=== PATIENT | female | born 1965 | race Two or more races ===

== ENCOUNTER 2021-03-25 10:24 | Outpatient (REF) | payer OTHER, SELFPAY ==
--- NOTE | ~2021-03-25 | MM_ITS ---
EXAMINATION: MM SCREENING DIGITAL BREAST TOMOSYNTHESIS, BILATERAL CLINICAL INFORMATION: Screening. Asymptomatic. The lifetime risk of breast cancer based on the Tyrer-Cuzick Model is 7%. COMPARISON: Mammography: 02/07/2017, 06/03/2016, 09/11/2013 TECHNIQUE: Digital breast tomosynthesis is performed in both the craniocaudal and mediolateral oblique views along with computer-aided detection (CAD). Synthesized 2D images are generated from the tomosynthesis. FINDINGS: There are scattered areas of fibroglandular density (ACR BI-RADS breast composition Category b). There are no significant masses, abnormal calcifications, or other abnormalities. There are incidental small intramammary nodes again seen mid upper outer right breast. There is no developing density. The axilla and skin contours are unremarkable. MM/MM tomosynthesis screening BI IMPRESSION: No mammographic evidence of malignancy. ASSESSMENT: BI-RADS 2: Benign RECOMMENDATION: Routine annual mammography screening. This patient's information was entered into a reminder system with a target due date for their next mammogram.
[2021-03-25 11:56] LABS: Alanine Aminotransferase 23 U/L (0-31); Alkaline Phosphatase 120 U/L (39-117); Anion Gap 11 (12-20); Aspartate Amino Transferase 16 U/L (5-31); Bilirubin Total 0.6 mg/dL (0.0-1.0); Blood Urea Nitrogen 11 mg/dL (9-16); Calcium 9.7 mg/dL (8.4-10.2); Carbon Dioxide 25 mmol/L (22-29); Chloride 108 mmol/L (96-108); Cholesterol 138 mg/dL; Estimated Glomerular Filt Rate > 60; Glucose Fasting 97 mg/dL (60-99); HDL Cholesterol 33 mg/dL; LDL Cholesterol Calculated 76 mg/dl; Potassium 4.2 mmol/L (3.3-5.1); Sodium 140 mmol/L (135-145); Total Protein 6.7 g/dL (6.5-8.0); Triglycerides 147 mg/dL
[2021-03-25 12:17] LABS: TSH reflex Free T4 2.89 uIU/mL (0.32-4.0)
== END 2021-03-25 10:25 | disposition home or self-care (01) ==
LOC: HO.MAMMO 10:24
PROVIDERS: PCP Nurse Practitioner Family; Visit Provider Nurse Practitioner Family
DX: Z12.31 Encounter for screening mammogram for malignant neoplasm of breast (principal); E03.9 Hypothyroidism, unspecified
CPT/HCPCS: 36415; 77063; 77067; 80053; 80061; 84443

== ENCOUNTER → 2021-05-13 08:46 | Outpatient (BNVA) | payer OTHER, SELFPAY | PROVIDERS: PCP Nurse Practitioner Family | DX: N32.81 Overactive bladder (principal); N20.0 Calculus of kidney | CPT/HCPCS: 51798; 99212 ==

== ENCOUNTER 2021-05-27 10:00 | Outpatient (RCR) | payer OTHER, SELFPAY ==
--- NOTE | 2021-06-07 10:21 | MHC.PT.DC ---
[facility] [place] Office [place] [facility] [place] [facility] [address] 140 [facility] [phone] F: [phone] F: [phone] F: [phone] F: [phone] Physical Therapy Discharge Report Diagnosis: Plantar Fasciitis Date of Surgery: None Date of Evaluation: 04/30/21 Date of Discharge: 06/07/21 Treatments to Date: 6 Cancellations to Date: 0 No Shows to Date: 4 Discharge Status: Achieved Goals Independent with HEP Discharge Summary: The patient has made significant improvements in her pain and tolerance for ADLs and work related tasks. She is able to make it through a work day without significant increase in pain. She is independent with her home exercise program. She is discharged from this physical therapy plan of care. Electronically signed by: Otilia Chappell PT, DPT Please sign and return to therapist. Thank you for your referral.
== END 2021-06-07 10:22 | disposition home or self-care (01) ==
LOC: HO.PT 10:00
PROVIDERS: PCP Nurse Practitioner Family; Visit Provider Physician Assistant Medical
DX: M72.2 Plantar fascial fibromatosis (principal)
CPT/HCPCS: 97110; 97112; 97150; 97161; 97530

== ENCOUNTER 2021-07-01 12:44 | Outpatient (REF) | payer OTHER, SELFPAY ==
--- NOTE | ~2021-07-01 | US_ITS ---
EXAMINATION: US RETROPERITONEAL LIMITED (RENAL ONLY) CLINICAL INFORMATION: Calculus of kidney. COMPARISON: CT abdomen and pelvis without contrast dated 01/25/2017. Renal ultrasound with bladder dated 07/25/2016. Bilateral renal ultrasound dated 12/22/2006. TECHNIQUE: Real-time imaging of the kidneys. FINDINGS: RIGHT KIDNEY: 10.8 x 4.7 x 5.2 cm (SAG x AP x TRV). The kidney is normal in size, contour, and echogenicity. Renal cortical thickness is normal. No calculi or focal parenchymal lesions. No hydronephrosis. LEFT KIDNEY: 10.8 x 4.0 x 4.8 cm (SAG x AP x TRV). The kidney is normal in size, contour, and echogenicity. Renal cortical thickness is normal. There is question of a small 2 mm stone in the mid left kidney versus vascular reflector. This is decreased in size from prior CT and ultrasound exam. No focal parenchymal lesions or hydronephrosis. US/US renal BI IMPRESSION: Question small left renal stone.
== END 2021-07-01 12:45 | disposition home or self-care (01) ==
LOC: HO.HMGCX 12:44
PROVIDERS: PCP Nurse Practitioner Family
DX: N20.0 Calculus of kidney (principal)
CPT/HCPCS: 76775

== ENCOUNTER 2021-12-09 11:51 | Outpatient (REF) | payer OTHER, SELFPAY ==
--- NOTE | ~2021-12-09 | XR_ITS ---
EXAMINATION: XR KNEE, RIGHT CLINICAL INFORMATION: Right knee pain COMPARISON: None TECHNIQUE: AP and lateral views of the right knee. FINDINGS: Mild medial compartment osteoarthritis. Normal alignment with no fracture. No joint effusion. XR/XR knee RT 2V IMPRESSION: Mild medial compartment osteoarthritis
--- NOTE | ~2021-12-09 | XR_ITS ---
EXAMINATION: XR FOOT, BILATERAL CLINICAL INFORMATION: Plantar fascial fibromatosis. Pain. COMPARISON: Left foot 08/01/2018 TECHNIQUE: 3 views of each foot FINDINGS: Left foot: Normal alignment. No fracture. No heel spur. Tiny posterior calcaneal enthesophyte. No periarticular osteopenia or erosions. No suspicious soft tissue calcifications. No significant change. Right foot: Normal alignment. No fracture. No heel spur. No erosions or suspicious soft tissue calcifications. XR/XR foot LT min 3V IMPRESSION: Left foot: Tiny posterior calcaneal enthesophyte. Otherwise unremarkable. No change. Right foot: Normal.
--- NOTE | ~2021-12-09 | XR_ITS ---
EXAMINATION: XR FOOT, BILATERAL CLINICAL INFORMATION: Plantar fascial fibromatosis. Pain. COMPARISON: Left foot 08/01/2018 TECHNIQUE: 3 views of each foot FINDINGS: Left foot: Normal alignment. No fracture. No heel spur. Tiny posterior calcaneal enthesophyte. No periarticular osteopenia or erosions. No suspicious soft tissue calcifications. No significant change. Right foot: Normal alignment. No fracture. No heel spur. No erosions or suspicious soft tissue calcifications. XR/XR foot RT min 3V IMPRESSION: Left foot: Tiny posterior calcaneal enthesophyte. Otherwise unremarkable. No change. Right foot: Normal.
== END 2021-12-09 11:52 | disposition home or self-care (01) ==
LOC: HO.HMGCX 11:51
PROVIDERS: Visit Provider Nurse Practitioner Family
DX: M25.561 Pain in right knee (principal); M72.2 Plantar fascial fibromatosis
CPT/HCPCS: 73560; 73630

== ENCOUNTER 2021-12-16 08:55 | Outpatient (REF) | payer OTHER, SELFPAY ==
[2021-12-16 11:22] LABS: MANUAL DIFF FLAG NO
[2021-12-16 11:37] LABS: Basophils Percent Auto 0.2 % (0-2); Eosinophils Absolute Auto 0.1 X10*3/uL (0.0-0.4); Hematocrit 43.3 % (37.0-47.0); Hemoglobin 14.4 g/dl (12.0-16.0); Imm Gran Abs Auto 0.03 X10*3/uL (0.00-0.03); Imm Gran Pct Auto 0.5 % (0.0-0.4); Lymphocytes Absolute Auto 1.3 X10*3/uL (1.2-4.9); Lymphocytes Percent Auto 20.7 % (20-40); Mean Corpuscular HGB Conc 33.3 g/dl (31.0-35.0); Mean Corpuscular Volume 90.2 fL (80.0-98.0); Mean Platelet Volume 11.1 fL (9.4-12.3); Monocytes Absolute Auto 0.4 X10*3/uL (0.1-1.2); Monocytes Percent Auto 7.1 % (2-11); Neutrophils Absolute Auto 4.4 x10*3/uL (2.0-8.3); Neutrophils Percent Auto 70.5 % (45-73); Platelet Count 195 X10*3/uL (160-400); Red Cell Distribution Width 13.7 % (11.0-16.0); White Blood Count 6.2 X10*3/uL (4.8-10.8)
[2021-12-16 11:50] LABS: Alanine Aminotransferase 20 U/L (0-31); Albumin Level 4.2 g/dL (3.5-5.0); Alkaline Phosphatase 118 U/L (39-117); Anion Gap 11 (12-20); Aspartate Amino Transferase 16 U/L (5-31); Bilirubin Total 0.7 mg/dL (0.0-1.0); Blood Urea Nitrogen 16 mg/dL (9-16); Calcium 9.8 mg/dL (8.4-10.2); Carbon Dioxide 26 mmol/L (22-29); Chloride 106 mmol/L (96-108); Cholesterol 173 mg/dL; Estimated Glomerular Filt Rate > 60; Glucose Fasting 100 mg/dL (60-99); HDL Cholesterol 41 mg/dL; Iron 76 mcg/dL (30-160); LDL Cholesterol Calculated 111 mg/dl; Percent Iron Saturation 23 % (15-50); Potassium 4.2 mmol/L (3.3-5.1); Sodium 139 mmol/L (135-145); Total Iron Binding Capacity 325 mcg/dL (228-428); Total Protein 7.1 g/dL (6.5-8.0); Triglycerides 108 mg/dL; Unsaturated Iron Binding 249 ug/dL
[2021-12-16 12:04] LABS: Ferritin 48 ng/mL (10-250); TSH reflex Free T4 19.33 uIU/mL (0.32-4.0)
[2021-12-16 12:24] LABS: Folate 7.3 ng/mL (> or = 4.0); Vitamin B12 756 pg/mL (200-900)
[2021-12-16 12:35] LABS: Appearance Urine CLEAR; Color Urine YELLOW; Glucose Urine UA NEG (NEG); Leukocyte Esterase Urine NEG (NEG); Nitrite Urine NEG (NEG); Specific Gravity - Urine 1.015 (1.005-1.025); Urine Blood NEG (NEG); Urine Ketones NEG (NEG); Urine Protein NEG (NEG-TRACE)
[2021-12-16 13:26] LABS: Free T4 (Free Thyroxine) 0.94 ng/dL (0.71-1.85)
== END 2021-12-16 08:56 | disposition home or self-care (01) ==
LOC: HO.HMGCLDS 08:55
PROVIDERS: PCP Nurse Practitioner Family; Visit Provider Nurse Practitioner Family
DX: R53.83 Other fatigue (principal)
CPT/HCPCS: 36415; 80053; 80061; 81003; 82607; 82728; 82746; 83540; 84439; 84443; 85025

== ENCOUNTER 2022-05-05 11:00 | Outpatient (REF) | payer OTHER, SELFPAY ==
[2022-05-05 13:59] LABS: MANUAL DIFF FLAG NO
[2022-05-05 14:02] LABS: Appearance Urine Clear; Color Urine Yellow; Glucose Urine UA Negative (Negative); Leukocyte Esterase Urine Trace (Negative); Nitrite Urine Negative (Negative); PH 6.5 (5.0-9.0); UMIC TRIGGER UACC YES; Urine Blood Negative (Negative); Urine Ketones Negative (Negative); Urine Protein Negative (Neg-Trace)
[2022-05-05 14:04] LABS: Bacteria Urine Trace (None Seen); Hyaline Casts Urine 0-2 /LPF (0-2); RBC Urine 0-2 /HPF (0-2); WBC Urine 0-5 /HPF (0-5)
[2022-05-05 14:06] LABS: Basophils Percent Auto 0.4 % (0-2); Eosinophils Absolute Auto 0.1 X10*3/uL (0.0-0.4); Eosinophils Percent Auto 1.2 % (0-4); Hematocrit 46.5 % (37.0-47.0); Hemoglobin 15.4 g/dl (12.0-16.0); Imm Gran Abs Auto 0.02 X10*3/uL (0.00-0.03); Imm Gran Pct Auto 0.4 % (0.0-0.4); Lymphocytes Absolute Auto 1.4 X10*3/uL (1.2-4.9); Mean Corpuscular HGB Conc 33.1 g/dl (31.0-35.0); Mean Corpuscular Hemoglobin 30.4 pg (27.0-33.0); Mean Corpuscular Volume 91.7 fL (80.0-98.0); Mean Platelet Volume 11.5 fL (9.4-12.3); Monocytes Absolute Auto 0.3 X10*3/uL (0.1-1.2); Monocytes Percent Auto 6.7 % (2-11); Neutrophils Absolute Auto 3.1 x10*3/uL (2.0-8.3); Neutrophils Percent Auto 62.3 % (45-73); Platelet Count 215 X10*3/uL (160-400); Red Blood Count 5.07 X10*6/uL (4.20-5.50); Red Cell Distribution Width 13.3 % (11.0-16.0); White Blood Count 4.9 X10*3/uL (4.8-10.8)
[2022-05-05 14:28] LABS: Alanine Aminotransferase 20 U/L (0-31); Albumin Level 4.3 g/dL (3.5-5.0); Alkaline Phosphatase 113 U/L (39-117); Anion Gap 13 (12-20); Aspartate Amino Transferase 15 U/L (5-31); Bilirubin Total 0.6 mg/dL (0.0-1.0); Blood Urea Nitrogen 15 mg/dL (9-16); Calcium 9.8 mg/dL (8.4-10.2); Carbon Dioxide 28 mmol/L (22-29); Chloride 106 mmol/L (96-108); Cholesterol 144 mg/dL; Estimated Glomerular Filt Rate > 60; Glucose Fasting 107 mg/dL (60-99); HDL Cholesterol 42 mg/dL; LDL Cholesterol Calculated 83 mg/dl; Potassium 4.8 mmol/L (3.3-5.1); Sodium 142 mmol/L (135-145); Total Protein 7.2 g/dL (6.5-8.0); Triglycerides 98 mg/dL
[2022-05-05 14:49] LABS: TSH reflex Free T4 4.08 uIU/mL (0.32-4.0)
[2022-05-05 15:02] LABS: Folate 11.1 ng/mL (> or = 4.0); Vitamin B12 830 pg/mL (200-900)
[2022-05-05 15:36] LABS: Free T4 (Free Thyroxine) 1.23 ng/dL (0.71-1.85)
[2022-05-09 19:05] LABS: Lyme Abs Screen <0.90 index
== END 2022-05-05 11:01 | disposition home or self-care (01) ==
LOC: HO.HMGCLDS 11:00
PROVIDERS: PCP Nurse Practitioner Family; Visit Provider Nurse Practitioner Family
DX: F41.9 Anxiety disorder, unspecified (principal); M25.50 Pain in unspecified joint; E53.8 Deficiency of other specified B group vitamins; R79.89 Other specified abnormal findings of blood chemistry
CPT/HCPCS: 36415; 80053; 80061; 81001; 81003; 82607; 82746; 84439; 84443; 85025; 86617; 86618

== ENCOUNTER 2022-06-23 16:38 | Outpatient (REF) | payer OTHER, SELFPAY ==
--- NOTE | ~2022-06-23 | XR_ITS ---
EXAMINATION: XR CHEST CLINICAL INFORMATION: Cough COMPARISON: None TECHNIQUE: 2 views of the chest were obtained. FINDINGS: No significant abnormality is noted involving the heart, lungs, mediastinum, bony thorax or soft tissues. XR/XR chest 2V IMPRESSION: No acute pulmonary disease.
[2022-06-23 16:51] LABS: MANUAL DIFF FLAG NO
[2022-06-23 17:27] LABS: Basophils Percent Auto 0.2 % (0-2); Eosinophils Absolute Auto 0.1 X10*3/uL (0.0-0.4); Eosinophils Percent Auto 0.9 % (0-4); Hematocrit 45.3 % (37.0-47.0); Hemoglobin 15.3 g/dl (12.0-16.0); Imm Gran Abs Auto 0.03 X10*3/uL (0.00-0.03); Imm Gran Pct Auto 0.3 % (0.0-0.4); Lymphocytes Percent Auto 22.4 % (20-40); Mean Corpuscular HGB Conc 33.8 g/dl (31.0-35.0); Mean Corpuscular Hemoglobin 30.8 pg (27.0-33.0); Mean Corpuscular Volume 91.1 fL (80.0-98.0); Monocytes Absolute Auto 0.6 X10*3/uL (0.1-1.2); Monocytes Percent Auto 7.1 % (2-11); Neutrophils Percent Auto 69.1 % (45-73); Platelet Count 214 X10*3/uL (160-400); Red Blood Count 4.97 X10*6/uL (4.20-5.50); Red Cell Distribution Width 12.9 % (11.0-16.0); White Blood Count 8.7 X10*3/uL (4.8-10.8)
[2022-06-23 17:41] LABS: Anion Gap 15 (12-20); Carbon Dioxide 26 mmol/L (22-29); Chloride 104 mmol/L (96-108); Potassium 4.5 mmol/L (3.3-5.1); Sodium 140 mmol/L (135-145)
[2022-06-23 18:06] LABS: TSH reflex Free T4 2.92 uIU/mL (0.32-4.0)
== END 2022-06-23 16:39 | disposition home or self-care (01) ==
LOC: HO.LAB 16:38
DX: R05.9 Cough, unspecified (principal); R53.83 Other fatigue
CPT/HCPCS: 36415; 71046; 80051; 84443; 85025

== ENCOUNTER 2022-06-30 12:47 | Outpatient (REF) | payer OTHER, SELFPAY ==
[2022-06-30 13:20] LABS: MANUAL DIFF FLAG NO
[2022-06-30 14:13] LABS: Basophils Percent Auto 0.4 % (0-2); Eosinophils Percent Auto 0.4 % (0-4); Hematocrit 50.5 % (37.0-47.0); Hemoglobin 16.6 g/dl (12.0-16.0); Imm Gran Abs Auto 0.03 X10*3/uL (0.00-0.03); Imm Gran Pct Auto 0.4 % (0.0-0.4); Lymphocytes Absolute Auto 1.3 X10*3/uL (1.2-4.9); Lymphocytes Percent Auto 16.4 % (20-40); Mean Corpuscular HGB Conc 32.9 g/dl (31.0-35.0); Mean Corpuscular Hemoglobin 29.4 pg (27.0-33.0); Mean Corpuscular Volume 89.4 fL (80.0-98.0); Mean Platelet Volume 11.1 fL (9.4-12.3); Monocytes Absolute Auto 0.4 X10*3/uL (0.1-1.2); Monocytes Percent Auto 4.9 % (2-11); Neutrophils Percent Auto 77.5 % (45-73); Platelet Count 234 X10*3/uL (160-400); Red Blood Count 5.65 X10*6/uL (4.20-5.50); Red Cell Distribution Width 12.8 % (11.0-16.0); White Blood Count 7.7 X10*3/uL (4.8-10.8)
[2022-06-30 14:51] LABS: Appearance Urine Clear; Color Urine Yellow; Glucose Urine UA Negative (Negative); Leukocyte Esterase Urine Negative (Negative); Nitrite Urine Negative (Negative); Urine Blood Negative (Negative); Urine Ketones Negative (Negative); Urine Protein Negative (Neg-Trace)
[2022-06-30 14:57] LABS: Bacteria Urine None Seen (None Seen); Hyaline Casts Urine 0-2 /LPF (0-2); RBC Urine 0-2 /HPF (0-2); Squamous Epithelial Cell Urine 0-2 /HPF (0-2); WBC Urine 0-5 /HPF (0-5)
[2022-06-30 15:06] LABS: Erythrocyte Sedimentation Rate 11 MM/HR (0-20)
[2022-06-30 15:09] LABS: Alanine Aminotransferase 22 U/L (0-31); Albumin Level 4.7 g/dL (3.5-5.0); Alkaline Phosphatase 132 U/L (39-117); Anion Gap 15 (12-20); Aspartate Amino Transferase 17 U/L (5-31); Bilirubin Total 0.7 mg/dL (0.0-1.0); Blood Urea Nitrogen 13 mg/dL (9-16); C Reactive Protein 1.41 mg/dL (< or = 0.50); Calcium 10.6 mg/dL (8.4-10.2); Carbon Dioxide 26 mmol/L (22-29); Chloride 104 mmol/L (96-108); Estimated Glomerular Filt Rate > 60; Glucose Random 108 mg/dL (60-115); Potassium 3.9 mmol/L (3.3-5.1); Rheumatoid Factor < 13.0 IU/mL (<15.0); Sodium 141 mmol/L (135-145); TSH reflex Free T4 1.73 uIU/mL (0.32-4.0); Total Protein 7.8 g/dL (6.5-8.0)
[2022-06-30 15:23] LABS: Creatinine Urine 26.85 mg/dL; Total Protein Urine Random < 7 mg/dL (<12)
[2022-07-01 11:17] LABS: Complement C3 181 mg/dL (83-193)
[2022-07-04 14:36] LABS: IgA 196 mg/dL (47-310); IgG 1157 mg/dL (600-1640); IgM 101 mg/dL (50-300)
[2022-07-04 15:11] LABS: Cyclic Citrullinated Peptide <16 UNITS
[2022-07-04 16:57] LABS: Lyme Abs Screen <0.90 index
[2022-07-05 12:13] LABS: Anti Nuclear Antibody Pattern Nuclear, Homogeneous; Anti Nuclear Antibody Screen POSITIVE (NEGATIVE)
[2022-07-06 09:56] LABS: Anti DNA DS Antibody 1 IU/mL; Antibody to SS-A Antigen <1.0 NEG AI (<1.0 NEG); Antibody to SS-B Antigen <1.0 NEG AI (<1.0 NEG); SM/Ribonucleoprotein Ab <1.0 NEG AI (<1.0 NEG); Smith Protein <1.0 NEG AI (<1.0 NEG)
== END 2022-06-30 12:48 | disposition home or self-care (01) ==
LOC: HO.LAB 12:47
PROVIDERS: PCP Nurse Practitioner Family; Visit Provider Student in an Organized Health Care Education/Training Program
DX: M17.0 Bilateral primary osteoarthritis of knee (principal); M32.9 Systemic lupus erythematosus, unspecified; M79.7 Fibromyalgia; M23.209 Derangement of unspecified meniscus due to old tear or injury, unspecified knee; E03.9 Hypothyroidism, unspecified; M06.9 Rheumatoid arthritis, unspecified; Z79.899 Other long term (current) drug therapy
CPT/HCPCS: 20610; 36415; 80053; 81001; 82784; 84156; 84443; 85025; 85652; 86038; 86039; 86140; 86160; 86200; 86225; 86235; 86334; 86431; 86617; 86618; 99202

== ENCOUNTER 2022-07-12 10:23 | Outpatient (REF) | payer OTHER, SELFPAY ==
--- NOTE | ~2022-07-12 | MR_ITS ---
EXAMINATION: MR KNEE WITHOUT CONTRAST, RIGHT CLINICAL INFORMATION: Right knee pain COMPARISON: Radiographs 12/09/2021 TECHNIQUE: MRI of the knee without contrast was performed using routine sequences on a high-field scanner. FINDINGS: MENISCI: Medial Meniscus: Degeneration and possible undersurface fraying of the meniscal body which is slightly extruded. Otherwise intact. Lateral Meniscus: Intact LIGAMENTS: Cruciate: Intact Collateral: Intact EXTENSOR MECHANISM: Intact ARTICULAR CARTILAGE/BONE: Patellofemoral Compartment: Cartilage thinning and surface irregularity of the medial patellar facet and medial trochlea peripherally. Medial Compartment: Cartilage thinning with areas of surface irregularity throughout the weightbearing aspect with small marginal osteophytes. Lateral Compartment: Cartilage thinning of the posterior tibia and posterior nonweightbearing femoral condyle. JOINT FLUID AND BURSAE: No significant joint effusion. Trace Haney's cyst. MR/MR knee RT wo con IMPRESSION: 1. Degeneration and possible undersurface fraying of the medial meniscus body which is slightly extruded. Menisci appear otherwise intact. 2. Mild tricompartmental osteoarthritis. No significant joint effusion. Trace Haney's cyst.
== END 2022-07-12 10:24 | disposition home or self-care (01) ==
LOC: HO.MRI 10:23
PROVIDERS: PCP Nurse Practitioner Family; Visit Provider Student in an Organized Health Care Education/Training Program
DX: M23.200 Derangement of unspecified lateral meniscus due to old tear or injury, right knee (principal)
CPT/HCPCS: 73721

== ENCOUNTER 2022-09-14 11:00 | Emergency (ER) | payer OTHER, SELFPAY ==
[2022-09-14 11:12] VITALS: BP 119/78; PULSE 98; RESP 16; TEMP 36.4; O2SAT 97; BMI 36.6
[2022-09-14] MEDS: Ketorolac Tromethamine 30 MG/ML VIAL IM (11:35)
--- NOTE | 2022-09-14 12:13 | ED.FALL ---
HPI - Fall General Chief Complaint: Fall Stated Complaint: fall yesterday at home, hip pain Time Seen by Provider: 09/14/22 11:08 Source: patient Mode of arrival: ambulatory History of Present Illness HPI Narrative: 56-year-old female with a past medical history of fibromyalgia, hyperthyroid, lupus, osteoarthritis, rheumatoid arthritis, presenting to the ED complaining left hip/ groin and left low back pain s/p mechanical slip and fall on ice yesterday. Denies symptoms prior to fall. Reports fell on left knee, denies head trauma or LOC. denies knee pain at present. Reports pain worse with movement of left lower extremity, has been ambulating with steady gait. Denies numbness, tingling, weakness, incontinence, retention, fever MD complaint: fall Onset (ago): day(s) Related Data Previous Rx's Medication Instructions Recorded hydrocortisone acetate 25 mg 25 mg WA BEDTIME PRN hemorrhoids 03/29/22 rectal suppository (Anusol-HC) 12 days #12 ea omeprazole 20 mg capsule,delayed 20 mg PO DAILY 30 days #30 caps 03/29/22 release diclofenac sodium 1 % topical gel 4 g topical QID #100 grams 06/30/22 (Voltaren Arthritis Pain) atorvastatin 20 mg tablet 20 mg PO BEDTIME 90 days #90 tabs 07/12/22 cholecalciferol (vitamin D3) 50 50 mcg PO DAILY 90 days #90 caps 07/12/22 mcg (2,000 unit) capsule levothyroxine 150 mcg tablet 150 mcg PO DAILY 90 days #90 tabs 07/12/22 mecobalamin (vitamin B12) 1,000 1,000 mcg PO DAILY 90 days #90 tabs 07/12/22 mcg chewable tablet sertraline 25 mg tablet 25 mg PO DAILY 30 days #30 tabs 07/12/22 acetaminophen 500 mg tablet 500 mg PO Q6H PRN fever or pain 09/14/22 (Tylenol Extra Strength) #14 tabs cyclobenzaprine 5 mg tablet 5 mg PO Q8H PRN pain (scale score 09/14/22 7-10) 5 days #14 tabs lidocaine 5 % topical patch 1 patch topical DAILY PRN pain #30 09/14/22 (Lidoderm) ea naproxen 500 mg tablet 500 mg PO BID PRN pain 10 days #20 09/14/22 tabs Allergies Allergy/AdvReac Type Severity Reaction Status Date / Time No Known Allergies Allergy Verified 06/30/22 10:32 Review of Systems Review of Systems: Constitutional: No Fever, No Chills ENT/Mouth: No Ear Pain, No Nasal Congestion, No sore throat, No Rhinorrhea, No Swallowing Difficulty Cardiovascular: No Chest Pain, No SOB Respiratory: No Cough, No Sputum Gastrointestinal: No Nausea, No Vomiting, No Diarrhea, No Constipation, No Abdominal pain Genitourinary: No Dysuria, No Urinary Frequency, No Hematuria, No Urinary Incontinence/retention, No Flank Pain Musculoskeletal: + joint pain, + Myalgias, No Joint Swelling Skin: No Skin Lesions, No rash Neuro: No Weakness, No Numbness, No Paresthesias Yes all other systems are reviewed and are negative Constitutional: Constitutional: Reports as per [facility] Past Medical History Attestation statement: The following information was validated with the patient. Medical History Cystitis Fibromyalgia Hyperthyroidism Lupus Osteoarthritis of left knee Osteoarthritis of right knee Overactive bladder Renal calculi Rheumatoid arthritis Stress bladder incontinence, female Surgical History History of surgery Family History Family History Mother Mental health disorder Alzheimer disease Father Cancer Brother Prostate cancer Social History Social History Housing: Other Housing Other:: living with friend Alcohol intake: current Alcohol intake frequency: does not drink Patient Tobacco Use Status: Current everyday Tobacco user Tobacco use type: Cigarette Cigarettes Per Day: 5 Years Smoked: 40 e-Cigarette/Vaping Use: Never Used Second Hand Smoke Exposure: No Advance Directives: No Advance Directives Information Provided: Yes service: No Current occupational status: employed Current occupation: behavioral tech Cognitive needs: No Hearing needs: No Vision needs: No Physical Exam Vital Signs: Vital Signs: Last Vital Signs Temp 97.6 F 09/14/22 11:12 Pulse 98 09/14/22 11:12 Resp 16 09/14/22 11:12 BP 119/78 09/14/22 11:12 Pulse Ox 97 09/14/22 11:12 O2 Del Method 09/14/22 11:12 BMI result Body Mass Index 36.6 Const: General: cooperative, healthy appearing and no acute distress Orientation/consciousness: patient oriented x3 Limitations: no limitations HEENT: Head: Yes normal to inspection and Yes atraumatic Ears: hearing grossly normal bilaterally General nose exam: Normal external nose present Face and sinus: Yes normal facial exam Eyes: General: appearance normal, both eyes and all related structures EOM: EOMs intact bilaterally Neck: Neck: Yes normal visual inspection and Yes no meningeal signs Resp: Effort & Inspection: normal respiratory effort and no respiratory distress Cardio: Rate: regular rate Peripheral pulses: Peripheral pulses 2+ throughout GI: Inspection: Yes normal to inspection Palpation (GI): Soft to palpation, nontender, no guarding and not rigid : General: Yes no CVA tenderness Back/Spine/Pelvis: Other: No midline thoracic/lumbar spinous tenderness/step-off or deformity. + left upper buttock/ left-sided lumbar MSK ttp, no erythema/ecchymosis Back: no CVA tenderness Skin: Rashes: no rashes Wounds: no wounds Neuro: Other: Strength intact throughout. No saddle anesthesia. Sensation intact to light touch. Neurovascular intact distally General: patient oriented x3, gait normal, tone normal, moves all extremities, no meningeal signs and no focal motor deficits Gait exam (Neuro): Normal gait present Motor exam (neuro): 5/5 motor strength present throughout Extrem: Other: pelvis stable. Left hip nontender, left groin with mild tenderness, worse with external rotation of the hip. Left knee with mild swelling/abrasion, nontender, full range of motion intact. Neurovascular intact distally. General: Yes normal to inspection and Yes normal gait Medications Administered Discontinued Medications Generic Name Dose Route Start Last Admin Trade Name Freq PRN Reason Stop Dose Admin Ketorolac Tromethamine 30 mg 09/14/22 11:30 09/14/22 11:35 Ketorolac Tromethamine 30 Mg/Ml Vial IM 09/14/22 11:31 30 mg ONCE ONE Administration Medical Decision Making Medical Decision Making MDM Narrative: 56-year-old female with a past medical history of fibromyalgia, hyperthyroid, lupus, osteoarthritis, rheumatoid arthritis, presenting to the ED complaining left hip/ groin and left low back pain s/p mechanical slip and fall on ice yesterday. On exam vital signs stable, NAD, nontoxic appearing, no midline spinous tenderness or or red flag symptoms. Physical exam as above. Concern for MSK pain / strain/ groin strain. Low suspicion for fracture, cauda equina, cord compression, renal stone/pyelo Offered patient x-rays in however with shared decision making feel unnecessary at this time. Plan: IM Toradol, pain control, PCP follow-up Results discussed with patient including worrisome signs and symptoms and strict return precautions, and when to return to the emergency department. They verbalized understanding and feel safe for discharge at this time. Differential Diagnosis Differential Diagnoses: The differential diagnosis associated with the presentation includes as above Prescription Management I considered prescription management with: Pain Medication Discharge Plan Discharge Clinical Impression: Low back pain Patient Disposition: Home, Self-Care Instructions: Acute Low Back Pain (ED) Additional Instructions: Your pain is likely musculoskeletal Flexeril is a muscle relaxer, take at night as it makes you drowsy, do not drive, drink alcohol, or operate machinery while taking it Naproxen as an anti-inflammatory / pain medication, take with food Lidoderm patches are numbing patches, apply to painful area In addition take Tylenol at home If symptoms persist or worsen, pain becomes unbearable, you developed urinary retention or incontinence, or weakness return to the ED Prescriptions: New acetaminophen [Tylenol Extra Strength] 500 mg tablet 500 mg PO Q6H PRN (Reason: fever or pain) Qty: 14 0RF lidocaine [Lidoderm] 5 % adhesive patch,medicated 1 patch topical DAILY MDD remove after 12 hours PRN (Reason: pain) Qty: 30 0RF Rx Instructions: leave on most painful area for up to 12 hrs naproxen 500 mg tablet 500 mg PO BID PRN (Reason: pain) 10 Days Qty: 20 0RF cyclobenzaprine 5 mg tablet 5 mg PO Q8H PRN (Reason: pain (scale score 7-10)) 5 Days Qty: 14 0RF No Action atorvastatin 20 mg tablet 20 mg PO BEDTIME 90 Days Qty: 90 0RF cholecalciferol (vitamin D3) 50 mcg (2,000 unit) capsule 50 mcg PO DAILY 90 Days Qty: 90 0RF levothyroxine 150 mcg tablet 150 mcg PO DAILY 90 Days Qty: 90 0RF mecobalamin (vitamin B12) 1,000 mcg tablet,chewable 1,000 mcg PO DAILY 90 Days Qty: 90 0RF sertraline 25 mg tablet 25 mg PO DAILY 30 Days Qty: 30 3RF omeprazole 20 mg capsule,delayed release(DR/EC) 20 mg PO DAILY 30 Days Qty: 30 2RF hydrocortisone acetate [Anusol-HC] 25 mg suppository 25 mg WA BEDTIME PRN (Reason: hemorrhoids) 12 Days Qty: 12 1RF diclofenac sodium [Voltaren Arthritis Pain] 1 % gel 4 g topical QID Qty: 100 1RF Rx Instructions: apply to single knee, ankle, foot; for foot includes sole/toes/top of foot Referrals: Deepak Temple, [employer] [Primary Care Provider] - 5 days
== END 2022-09-14 12:24 | disposition home or self-care (01) ==
PROVIDERS: Emergency Provider Emergency Medicine; PCP Nurse Practitioner Family
DX: M54.50 Low back pain, unspecified (principal)
CPT/HCPCS: 96372; 99283; 99284; J1885

== ENCOUNTER 2023-03-28 14:48 | Outpatient (AMB) | payer OTHER, SELFPAY ==
[2023-03-28 14:57] VITALS: BP 118/70; PULSE 85; O2SAT 97; BMI 36.0
--- NOTE | 2023-03-28 14:57 | A.OFFPC_ITS ---
Vital Signs 03/28/23 14:57 Height 5 ft 2 in Weight 197 lb BMI 36.0 BP 118/70 Blood Pressure Location Rt brachial Position Sitting Pulse 85 Pulse Source Pulse Oximeter Pulse Oximetry (%) 97 Oxygen Delivery Method Room Air Intake Visit Reasons[place] [facility] [place] Allergies No Known Allergies Allergy (Verified 03/28/23 15:01) Medication List - Last Reconciled 03/28/23 by DUYEN Salazar cholecalciferol (vitamin D3) 50 mcg PO DAILY 90 days diclofenac sodium 1% (Voltaren Arthritis Pain) 4 grams topical QID hydrocortisone 2.5% (Anusol-HC) 1 appl [place] BID-QID PRN levothyroxine 150 mcg PO DAILY 90 days mecobalamin (vitamin B12) 1,000 mcg PO DAILY 90 days sertraline 25 mg PO DAILY Tobacco use date assessed: 03/28/23 Dental Screening Dental Screen Date: 03/28/23 Did you have a dental visit in the last 12 months?: No Did you have a dental problem in the last 6 months where you did not have access to dental care?: No Was dental information given to patient?: Patient declined HPI [place] [facility] [place] HPI Details Pt is here for a PE. Will order labs. Pt will schedule her own mammo. Pt has a hx of lupus and fibromyalgia. She reports arthralgias and myalgias. She does not currently see a concrete pile driver operator, will refer. Pt has not had insurance for a while. Due for colon screen, will refer to GI. Pt reports increased depression. Will increase sertraline from 25mg to 50mg. Will also have team reach out to pt. Denies any SI and HI. [facility] Medical History Cystitis Fibromyalgia Hyperthyroidism Lupus Osteoarthritis of left knee Osteoarthritis of right knee Overactive bladder Renal calculi Rheumatoid arthritis Stress bladder incontinence, female Surgical History History of surgery Family History Mother Mental health disorder Alzheimer disease Father Cancer Brother Prostate cancer Social History Housing: Other Housing Other:: living with friend Alcohol intake: current Alcohol intake frequency: does not drink Patient Tobacco Use Status: Current everyday Tobacco user Tobacco use type: Cigarette Cigarettes Per Day: 5 Years Smoked: 40 Packs per year/per ci.00 e-Cigarette/Vaping Use: Never Used Second Hand Smoke Exposure: No service: No Current occupational status: employed Current occupation: behavioral tech Cognitive needs: No Hearing needs: No Vision needs: No Questionnaire Thrive Questionnaire Date Thrive assessed: 05/06/21 Review of Systems Const Denies chills and Denies fever(s) Eyes Denies blurry vision ENT Denies vertigo, Denies dizziness and Denies sore throat Card Denies chest pain at rest, Denies chest pain with activity, Denies diaphoresis, Denies dyspnea and Denies dyspnea on exertion Resp Denies cough, Denies dyspnea, Denies dyspnea on exertion and Denies wheezing GI Denies abdominal pain, Denies melena, Denies hematochezia, Reports constipation, Denies diarrhea and Denies loose stools Denies hematuria Musc Denies numbness and Denies tingling Skin/Breast Denies lesions Neuro Denies vertigo, Denies dizziness, Denies numbness and Denies tingling Psych Denies anxiety, Denies depression, Denies homicidal ideation, Denies suicidal ideation and Denies other (substance abuse) Aller/Immun Denies wheezing Physical exam (Primary Care) Vital Signs: Last Vital Signs Pulse 85 03/28/23 14:57 BP 118/70 03/28/23 14:57 Pulse Ox 97 03/28/23 14:57 Oxygen Delivery Method Room Air 03/28/23 14:57 BMI result Body Mass Index 36.0 Tobacco/Smoking Status: Tobacco use Status Tobacco use date assessed 03/28/23 03/28/23 15:05 Patient Tobacco Use Status Current everyday Tobacco 03/28/23 15:05 Tobacco use type Cigarette 03/28/23 15:05 e-Cigarette/Vaping Use Never Used 03/28/23 15:05 Thrive Assessment: Date of Thrive Assessment Date Thrive assessed 05/06/21 03/28/23 15:05 Const General: cooperative Nutritional Appearance: obese Orientation/consciousness: patient oriented x3 HENMT Head: Yes normal to inspection, Yes normocephalic and Yes atraumatic Ears: TM's normal bilaterally Eyes General: appearance normal, both eyes and all related structures Alignment and Position: alignment normal and position normal Neck Neck: Yes normal visual inspection and Yes no lymphadenopathy Thyroid: Thyroid normal Resp Effort & Inspection: normal respiratory effort Auscultation: clear to auscultation bilaterally Cardio Rate: regular rate Rhythm: regular rhythm Heart sounds: S1 normal heart sound present, S2 normal heart sound present and no murmurs GI Palpation (GI): Soft to palpation and nontender Auscultation: normal bowel sounds Skin Rashes: no rashes Neuro General: patient oriented x3, moves all extremities, no focal motor deficits and deep tendon reflexes 2+ bilaterally Romberg Test: Negative Psych Appearance: grossly normal Mental Status: mental status grossly normal Speech and movement: Normal speech and movement present Affect: normal affect Attitude: cooperative Thought process: Normal thought process present Thought content: Normal thought content present Insight: Good insight present (Psych) Judgement: Good judgement present (Psych) Assessment and Plan Assessment & Plan (1) Physical exam: Code(s): Z00.00 - Encounter for general adult medical examination without abnormal findings Plan: Labs ordered (2) Hemorrhoids: Code(s): K64.9 - Unspecified hemorrhoids Plan: Referred to GI (3) Screening for colon cancer: Code(s): Z12.11 - Encounter for screening for malignant neoplasm of colon Plan: Referred to GI (4) B12 deficiency: Code(s): E53.8 - Deficiency of other specified B group vitamins Plan: Labs ordered (5) Lupus: Code(s): M32.9 - Systemic lupus erythematosus, unspecified Plan: Referred to rheumatology (6) Major depression, recurrent: Code(s): F33.9 - Major depressive disorder, recurrent, unspecified Plan The patient agreed to the use of a medical record assistant for this encounter. Scribed for DUYEN Ivey by Clare Early medical record assistant, on 03/28/2023 at 15:10 EST. Orders: Orders Comprehensive [place]. Panel Fast Today Z00.00 - Encounter for general adult medical examination without abnormal findings Lipid Panel Today Z00.00 - Encounter for general adult medical examination without abnormal findings TSH reflex Free T4 Today Z00.00 - Encounter for general adult medical examination without abnormal findings Complete Blood Count Auto Diff Today Z00.00 - Encounter for general adult medical examination without abnormal findings UA CC w/rflx Micro + Cult Today Z00.00 - Encounter for general adult medical examination without abnormal findings Vitamin B12 and Folate Today E53.8 - Deficiency of other specified B group vitamins AMB EKG-In Office Today Z00.00 - Encounter for general adult medical examination without abnormal findings Referrals Gastroenterology Referral K64.9 - Unspecified hemorrhoids, Z12.11 - Encounter for screening for malignant neoplasm of colon Rheumatology Referral M32.9 - Systemic lupus erythematosus, unspecified Medications: Changed From sertraline Schedule next PCP appt for more refills 25 mg PO DAILY 90 tabs 0RF To sertraline 50 mg PO DAILY 90 tabs 0RF Coding Level of Care Code Est Pt Prev Care 40-64y(95017) Diagnoses Physical exam Z00.00 Hemorrhoids K64.9 Screening for colon cancer Z12.11 B12 deficiency E53.8 Lupus M32.9 Major depression, recurrent F33.9
== END 2023-03-28 15:49 | disposition home or self-care (01) ==
PROVIDERS: PCP Nurse Practitioner Family; Visit Provider Nurse Practitioner Family
DX: Z00.00 Encounter for general adult medical examination without abnormal findings (principal); M32.9 Systemic lupus erythematosus, unspecified; F33.9 Major depressive disorder, recurrent, unspecified; K64.9 Unspecified hemorrhoids; Z12.11 Encounter for screening for malignant neoplasm of colon; E53.8 Deficiency of other specified B group vitamins
CPT/HCPCS: 99396

== ENCOUNTER 2023-04-20 13:34 | Outpatient (REF) | payer OTHER, SELFPAY | END 2023-04-20 13:35 | disposition home or self-care (01) | LOC: HO.MAMMO 13:34 | PROVIDERS: Visit Provider Nurse Practitioner Family | DX: Z13.89 Encounter for screening for other disorder (principal) ==

== ENCOUNTER 2023-05-11 12:20 | Outpatient (AMB) | payer OTHER, SELFPAY ==
--- NOTE | 2023-05-11 12:26 | MHC.OFFVIS ---
Intake Vital Signs 05/11/23 12:29 Height 5 ft 2 in Weight 190 lb BMI 34.7 BP 137/83 Blood Pressure Location Lt brachial Position Sitting Pulse 83 Intake Visit Reasons: colonoscopy screening/hemorrhoids Intake Note: Patient new consult for hemorrhoids and pre colonoscopy screening. Patient cc: hemorrhoids with blood and pain, acid reflex on and off, denies any other GI issues. All Source Intelligence Technician Required: No Accompanied by: Grand Child Allergies No Known Allergies Allergy (Verified 05/11/23 12:25) Medication List - Last Reconciled 05/11/23 by Chrissy Gonsalves PA-C cholecalciferol (vitamin D3) 50 mcg PO DAILY 90 days diclofenac sodium 1% (Voltaren Arthritis Pain) 4 grams topical QID hydrocortisone 2.5% (Anusol-HC) 1 appl [place] BID-QID PRN levothyroxine 150 mcg PO DAILY 90 days mecobalamin (vitamin B12) 1,000 mcg PO DAILY 90 days sertraline 50 mg PO DAILY HPI HPI Comments History of Present Illness Details A 57 y/o female referred for screening colonoscopy- cannot recall when she had her last colonoscopy but it was many years ago. She typically has no bowel issues however she has always had a problem with hemorrhoids. hx of hemmoroidectomy- about 8 years ago- she has frequent flares, he uses Anusol p.r.n. Appetite good- reflux well controlled- losing weight- better food choices- stopped soda-and rice Bowels are ok- No N/V/D/ abdominal pain PFSH Medical History Cystitis Fibromyalgia Hyperthyroidism Lupus Osteoarthritis of left knee Osteoarthritis of right knee Overactive bladder Renal calculi Rheumatoid arthritis Stress bladder incontinence, female Surgical History History of surgery Family History Mother Mental health disorder Alzheimer disease Father Cancer Brother Prostate cancer Social History Housing: Other Housing Other:: living with friend Alcohol intake: current Alcohol intake frequency: does not drink Patient Tobacco Use Status: Current everyday Tobacco user Tobacco use type: Cigarette Cigarettes Per Day: 5 Years Smoked: 40 e-Cigarette/Vaping Use: Never Used Second Hand Smoke Exposure: No service: No Current occupational status: employed Current occupation: [employer] tech Cognitive needs: No Hearing needs: No Vision needs: No Review of Systems Const All systems reviewed & are unremarkable except as noted in HPI and below Card Denies chest pain and Denies dyspnea Resp Denies dyspnea GI Denies abdominal pain, Denies heartburn, Denies nausea and Denies vomiting Psych Reports anxiety Physical Exam Vital Signs: Last Vital Signs Pulse 83 05/11/23 12:29 BP 137/83 05/11/23 12:29 BMI result Body Mass Index 34.7 Const General: cooperative, healthy appearing and comfortable Orientation/consciousness: patient oriented x3 Limitations: no limitations Eyes Sclerae: sclerae normal Resp Effort & Inspection: normal respiratory effort and able to speak in complete sentences Auscultation: clear to auscultation bilaterally, no rales, no rhonchi and no wheezes Cardio Rate: regular rate Rhythm: regular rhythm Heart sounds: S1 normal heart sound present and S2 normal heart sound present GI Palpation (GI): Soft to palpation and nontender Auscultation: normal bowel sounds Skin General skin exam: no rashes or lesions noted Neuro General: patient oriented x3 Extrem General: Yes full ROM Psych Appearance: grossly normal and well kempt Mental Status: mental status grossly normal Speech and movement: Normal speech and movement present and Clear speech present Affect: Anxious affect present Attitude: cooperative Thought process: Normal thought process present Thought content: Normal thought content present Assessment & Plan Assessment & Plan (1) Screening for colon cancer: Comment: Very anxious, pleasant Screening colonoscopy no bowel issues Code(s): Z12.11 - Encounter for screening for malignant neoplasm of colon (2) Hemorrhoids: Code(s): K64.9 - Unspecified hemorrhoids Plan: Referred to general surgery for consult, Consistent bowel regimen high-fiber diet Avoid strain (3) GERD (gastroesophageal reflux disease): Comment: Well controlled, Code(s): K21.9 - Gastro-esophageal reflux disease without esophagitis Plan: Reviewed reflux precautions Continue PPI Avoid culprits Orders: Orders Colonoscopy - GI Use Only Today Z12.11 - Encounter for screening for malignant neoplasm of colon Referrals General Surgery Referral K21.9 - Gastro-esophageal reflux disease without esophagitis, K64.9 - Unspecified hemorrhoids Medications: New bisacodyl (Dulcolax (bisacodyl)) Take 4 tablets by mouth at 12:00pm the day before your procedure. 20 mg (4 x 5 mg) PO ONCE 1 day 4 tabs 0RF colonoscopy prep Z12.11 - Encounter for screening for malignant neoplasm of colon polyethylene glycol 3350 (Miralax) Take as directed by mouth the day before your procedure. 238 grams PO ONCE 1 day PRN 238 grams 0RF laxative effect Patient Instructions: Screening colonoscopy MiraLax Gatorade split Referral to surgery for hemorrhoid consult Maintain high-fiber diet avoid straining Encouraged to call questions or concerns Coding Level of Care Code New Pt Level 3 (66870) Diagnoses Screening for colon cancer Z12.11 Hemorrhoids K64.9 GERD (gastroesophageal reflux disease) K21.9 Time Spent (min) 35
[2023-05-11 12:29] VITALS: BP 137/83; PULSE 83; BMI 34.7
== END 2023-05-11 15:18 | disposition home or self-care (01) ==
PROVIDERS: PCP Nurse Practitioner Family; Visit Provider Physician Assistant
DX: Z12.11 Encounter for screening for malignant neoplasm of colon (principal); K64.9 Unspecified hemorrhoids; K21.9 Gastro-esophageal reflux disease without esophagitis; Z01.818 Encounter for other preprocedural examination
CPT/HCPCS: 99203

== ENCOUNTER → 2023-05-11 12:20 | Outpatient (BNVA) | payer OTHER, SELFPAY | PROVIDERS: PCP Nurse Practitioner Family; Visit Provider Physician Assistant ==

== ENCOUNTER 2023-05-23 09:47 | Outpatient (AMB) | payer OTHER, SELFPAY ==
--- NOTE | 2023-05-23 09:48 | MHC.OFFVIS ---
Intake Vital Signs 05/23/23 09:49 Height 5 ft 2 in Weight 193 lb BMI 35.3 BP 112/68 Blood Pressure Location Rt brachial Position Sitting Pulse 88 Intake Visit Reasons: Hemorrhoids Intake Note: Patient referred for external hemorroids. Had bands placed in 2019. Hemorroidectomy at [facility] in 2018. Reports colonoscopy about 10 yrs ago. Currently waiting to be scheduled for colonoscopy. C/o bleeding and mucous with BM. Denies constipation. Court Messenger Required: No Accompanied by: daughter Helene Lee Allergies No Known Allergies Allergy (Verified 05/23/23 09:57) HPI HPI Comments History of Present Illness Details Patient presents with her daughter because of significant hemorrhoidal complaints. Patient has had hemorrhoidectomy in the past as well as hemorrhoidal banding. Patient stools several times a day and spends prolonged time on the toilet pushing. She has developed recurrence of her hemorrhoidal symptoms including pain, swelling, mucus discharge. Patient had colonoscopy approximately 9 years ago which she says was otherwise within normal limits. Patient has had some issues recently with fecal incontinence. She states that she will sometimes sore herself because she is unable to control her bowel movements. Patient denies any anal receptive practices recently. Chart was reviewed patient evaluated [facility] Medical History Osteoarthritis of left knee Osteoarthritis of right knee Overactive bladder Renal calculi Rheumatoid arthritis Fibromyalgia Lupus Hyperthyroidism Stress bladder incontinence, female Cystitis Surgical History History of surgery Family History Mother Mental health disorder Alzheimer disease Father Cancer Brother Prostate cancer Social History Housing: Other Housing Other:: living with friend Alcohol intake: current Alcohol intake frequency: does not drink Patient Tobacco Use Status: Current everyday Tobacco user Tobacco use type: Cigarette Cigarettes Per Day: 5 Years Smoked: 40 e-Cigarette/Vaping Use: Never Used Second Hand Smoke Exposure: No service: No Current occupational status: employed Current occupation: behavioral tech Cognitive needs: No Hearing needs: No Vision needs: No Physical Exam Vital Signs: Last Vital Signs Pulse 88 05/23/23 09:49 BP 112/68 05/23/23 09:49 BMI result Body Mass Index 35.3 Chest Other: Chest breath sounds bilaterally, HS 1 in 2 GI Other: Abdomen soft, benign. Rectal exam demonstrates profound and extensive internal and external hemorrhoids, swollen, and prolapsing.. Assessment & Plan Assessment & Plan (1) Hemorrhoids: Code(s): K64.9 - Unspecified hemorrhoids Plan Risks, benefits, alternatives of hemorrhoidectomy reviewed with the patient and her daughter and included but not limited to bleeding, infection, recurrence, numbness, pain, scarring, fecal incontinence and the patient wishes to proceed. All questions were answered. Patient will receive a day prior to her procedure a mini bowel prep. Coding Level of Care Code New Pt Level 5 (40399) Diagnoses Hemorrhoids K64.9
[2023-05-23 09:49] VITALS: BP 112/68; PULSE 88; BMI 35.3
== END 2023-05-23 10:18 | disposition home or self-care (01) ==
PROVIDERS: PCP Nurse Practitioner Family; Referring Provider Physician Assistant; Visit Provider Surgery
DX: K64.8 Other hemorrhoids (principal)
CPT/HCPCS: 99204

== ENCOUNTER → 2023-05-23 09:47 | Outpatient (BNVA) | payer OTHER, SELFPAY | PROVIDERS: PCP Nurse Practitioner Family; Referring Provider Physician Assistant; Visit Provider Surgery ==

== ENCOUNTER 2023-05-24 10:32 | Outpatient (AMB) | payer OTHER, SELFPAY ==
--- NOTE | 2023-05-24 10:56 | MHC.PC.OV ---
Vital Signs 05/24/23 10:57 Height 5 ft 2 in Weight 191 lb BMI 34.9 BP 130/86 Blood Pressure Location Lt brachial Position Sitting Pulse 76 Pulse Source Pulse Oximeter Pulse Oximetry (%) 98 Oxygen Delivery Method Room Air Intake Visit Reasons: hair loss, pain, depression Allergies No Known Allergies Allergy (Verified 05/24/23 16:42) Medication List - Last Reconciled 05/24/23 by DUYEN Salazar atorvastatin 20 mg PO DAILY bisacodyl (Dulcolax (bisacodyl)) 20 mg (4 x 5 mg) PO ONCE 1 day levothyroxine 150 mcg PO DAILY 90 days mecobalamin (vitamin B12) 1,000 mcg PO DAILY 90 days methocarbamol 500 mg PO BEDTIME PRN 30 days polyethylene glycol 3350 (Miralax) 238 grams PO ONCE PRN 1 day sertraline 50 mg PO DAILY Tobacco use date assessed: 05/24/23 Dental Screening Dental Screen Date: 05/24/23 Did you have a dental visit in the last 12 months?: No Did you have a dental problem in the last 6 months where you did not have access to dental care?: No Was dental information given to patient?: No HPI hair loss, pain, depression HPI Details pt reports ongoing body/joint pains. She is currently seeing rheumatology, next appt is tomorrow. Pt is very teary eyed, does admit to depression with anxiety. Denies any SI or HI. Pt is here with her daughter in the room today. Pt further describes the pains and constant pressure to work in pain, trying to keep up with bills. I do think she should qualify for SSD. I will fill out her FMLA, giving her days off with flares, and recommend a reduced work schedule. I will have see the pt today (Sade), to get her in touch with a therapist and possibly a psychiatrist. General lab orders entered. I look forward to Rheumatology's future plan. I will see the pt back in a few months, and she knows she can reach out to me at any point. Thyroid: on levo, will check levels PFSH Medical History Osteoarthritis of left knee Osteoarthritis of right knee Overactive bladder Renal calculi Rheumatoid arthritis Fibromyalgia Lupus Hyperthyroidism Stress bladder incontinence, female Cystitis Surgical History History of surgery Family History Mother Mental health disorder Alzheimer disease Father Cancer Brother Prostate cancer Social History Housing: Other Housing Other:: living with friend Alcohol intake: current Alcohol intake frequency: does not drink Patient Tobacco Use Status: Current everyday Tobacco user Tobacco use type: Cigarette Cigarettes Per Day: 5 Years Smoked: 40 e-Cigarette/Vaping Use: Never Used Second Hand Smoke Exposure: No service: No Current occupational status: employed Current occupation: [employer] Cognitive needs: No Hearing needs: No Vision needs: No Questionnaire Thrive Questionnaire Date Thrive assessed: 05/06/21 Physical exam (Primary Care) Vital Signs: Last Vital Signs Pulse 76 05/24/23 10:57 BP 130/86 05/24/23 10:57 Pulse Ox 98 05/24/23 10:57 Oxygen Delivery Method Room Air 05/24/23 10:57 BMI result Body Mass Index 34.9 Tobacco/Smoking Status: Tobacco use Status Tobacco use date assessed 05/24/23 05/24/23 11:02 Patient Tobacco Use Status Current everyday Tobacco 05/24/23 11:02 Tobacco use type Cigarette 05/24/23 11:02 e-Cigarette/Vaping Use Never Used 05/24/23 11:02 Thrive Assessment: Date of Thrive Assessment Date Thrive assessed 05/06/21 05/24/23 11:02 Const General: cooperative, healthy appearing and anxious Resp Effort & Inspection: normal respiratory effort Cardio Rate: regular rate Rhythm: regular rhythm Heart sounds: S1 normal heart sound present, S2 normal heart sound present and no murmurs Psych Appearance: grossly normal Speech and movement: Normal speech and movement present Affect: Sad affect present Attitude: cooperative Thought process: Normal thought process present Thought content: Normal thought content present Insight: Good insight present (Psych) Judgement: Good judgement present (Psych) Assessment and Plan Assessment & Plan (1) Anxiety: Code(s): F41.9 - Anxiety disorder, unspecified (2) Elevated TSH: Code(s): R79.89 - Other specified abnormal findings of blood chemistry (3) Major depression, recurrent: Code(s): F33.9 - Major depressive disorder, recurrent, unspecified Orders: Orders Comprehensive Fitzpatrick. Panel Fast Today F33.9 - Major depressive disorder, recurrent, unspecified, F41.9 - Anxiety disorder, unspecified, R79.89 - Other specified abnormal findings of blood chemistry UA CC w/rflx Micro + Cult Today F33.9 - Major depressive disorder, recurrent, unspecified, F41.9 - Anxiety disorder, unspecified, R79.89 - Other specified abnormal findings of blood chemistry Complete Blood Count Auto Diff Today F33.9 - Major depressive disorder, recurrent, unspecified, F41.9 - Anxiety disorder, unspecified, R79.89 - Other specified abnormal findings of blood chemistry TSH reflex Free T4 Today F33.9 - Major depressive disorder, recurrent, unspecified, F41.9 - Anxiety disorder, unspecified, R79.89 - Other specified abnormal findings of blood chemistry Lipid Panel Today F33.9 - Major depressive disorder, recurrent, unspecified, F41.9 - Anxiety disorder, unspecified, R79.89 - Other specified abnormal findings of blood chemistry Medications: New methocarbamol 500 mg PO BEDTIME 30 days PRN 30 tabs 0RF muscle spasms Coding Level of Care Code Est Pt Level 3 (97647) Diagnoses Anxiety F41.9 Elevated TSH R79.89 Major depression, recurrent F33.9
[2023-05-24 10:57] VITALS: BP 130/86; PULSE 76; O2SAT 98; BMI 34.9
== END 2023-05-24 12:03 | disposition home or self-care (01) ==
PROVIDERS: PCP Nurse Practitioner Family; Visit Provider Nurse Practitioner Family
DX: F41.9 Anxiety disorder, unspecified (principal); R79.89 Other specified abnormal findings of blood chemistry; F33.9 Major depressive disorder, recurrent, unspecified
CPT/HCPCS: 99213

== ENCOUNTER 2023-05-25 09:56 | Outpatient (REF) | payer OTHER, SELFPAY ==
[2023-05-25 13:35] LABS: Alanine Aminotransferase 16 U/L (0-31); Alkaline Phosphatase 117 U/L (39-117); Anion Gap 16 (12-20); Aspartate Amino Transferase 15 U/L (5-31); Bilirubin Total 0.5 mg/dL (0.0-1.0); Blood Urea Nitrogen 13 mg/dL (9-16); Calcium 9.9 mg/dL (8.4-10.2); Carbon Dioxide 20 mmol/L (22-29); Chloride 108 mmol/L (96-108); Cholesterol 131 mg/dL (<200); Estimated Glomerular Filt Rate > 60; Glucose Fasting 105 mg/dL (60-99); HDL Cholesterol 38 mg/dL (>40); LDL Cholesterol Calculated 73 mg/dL (<100); Potassium 3.8 mmol/L (3.3-5.1); Sodium 140 mmol/L (135-145); Total Protein 7.1 g/dL (6.5-8.0); Triglycerides 103 mg/dL (<150)
[2023-05-25 13:51] LABS: TSH reflex Free T4 2.75 uIU/mL (0.32-4.0)
== END 2023-05-25 09:57 | disposition home or self-care (01) ==
LOC: HO.HMGCLDS 09:56
PROVIDERS: PCP Nurse Practitioner Family; Visit Provider Nurse Practitioner Family
DX: M17.0 Bilateral primary osteoarthritis of knee (principal); M79.7 Fibromyalgia; E53.8 Deficiency of other specified B group vitamins; F41.9 Anxiety disorder, unspecified; F33.9 Major depressive disorder, recurrent, unspecified; R76.8 Other specified abnormal immunological findings in serum; M23.203 Derangement of unspecified medial meniscus due to old tear or injury, right knee; R79.89 Other specified abnormal findings of blood chemistry; Z79.899 Other long term (current) drug therapy
CPT/HCPCS: 36415; 80053; 80061; 82607; 82746; 84443; 85025; 99212

== ENCOUNTER 2023-05-25 14:00 | Outpatient (AMB) | payer OTHER, SELFPAY ==
[2023-05-25 14:02] VITALS: BP 112/72; PULSE 85; TEMP 36.8; O2SAT 93; BMI 34.9
--- NOTE | 2023-05-25 14:02 | MHC.OFFVIS ---
Intake Vital Signs 05/25/23 14:02 Height 5 ft 2 in Weight 190 lb 14.725 oz BMI 34.9 BP 112/72 Blood Pressure Location Rt brachial Position Sitting Pulse 85 Pulse Source Pulse Oximeter Temp 98.3 F Temp Source Skin Pulse Oximetry (%) 93 Intake Visit Reasons: SLE/OA Intake Note: Pt seen today for follow up. C/o generalized pain, states she has FM. Reports she saw PCP yesterday was prescribed methocarbamol, but has not picked this up yet. Business Developer Required: No Accompanied by: Daughter Allergies No Known Allergies Allergy (Verified 05/25/23 14:11) Medication List - Last Reconciled 05/25/23 by Shanelle Louis MD atorvastatin 20 mg PO DAILY bisacodyl (Dulcolax (bisacodyl)) 20 mg (4 x 5 mg) PO ONCE 1 day levothyroxine 150 mcg PO DAILY 90 days mecobalamin (vitamin B12) 1,000 mcg PO DAILY 90 days methocarbamol 500 mg PO BEDTIME PRN 30 days polyethylene glycol 3350 (Miralax) 238 grams PO ONCE PRN 1 day sertraline 50 mg PO DAILY HPI HPI Comments History of Present Illness Details 57-year-old female with bilateral knee OA and fibromyalgia returns for follow-up. She stated that knee injections done 06/2022 gave her relief for at least 6 months. She states that the knee pain is coming back, especially the right knee. She is also complaining of diffuse fibromyalgia pain. She stated that she was on gabapentin in the past for fibromyalgia which was initially helping then was no longer effective Initial history: This is a 56 female with past medical history of hypothyroidism, dyslipidemia, fibromyalgia who presents for evaluation of inflammatory arthritis. 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 She was being followed at the [facility] for many years. It would usually affect her knees and ankles. She stated that she had multiple knee arthrocentesis in the past. She stated that she got multiple NSAIDs. She does not remember whether she got corticosteroids or any DMARDs. She was really relabeled later as lupus by another tree tapping laborer. She has not been evaluated by a tree tapping laborer for more than 20 years. Currently she has pain in both knees, As well as both ankles. Patient's knee pain has been ongoing for years, she takes NSAIDs without any significant relief. She also went to physical therapy for her knees without any relief. She had the right knee x-ray earlier this year which showed medial compartment osteoarthritis. She feels that her right knee lock when she walks. No history of falls. [facility] Medical History (Updated 05/25/23 @ 14:34 by Shanelle Louis MD) Lupus Osteoarthritis of left knee Osteoarthritis of right knee Overactive bladder Renal calculi Fibromyalgia Hyperthyroidism Stress bladder incontinence, female Cystitis Surgical History History of surgery Family History Mother Mental health disorder Alzheimer disease Father Cancer Brother Prostate cancer Social History Housing: Other Housing Other:: living with friend Alcohol intake: current Alcohol intake frequency: does not drink Patient Tobacco Use Status: Current everyday Tobacco user Tobacco use type: Cigarette Cigarettes Per Day: 5 Years Smoked: 40 e-Cigarette/Vaping Use: Never Used Second Hand Smoke Exposure: No service: No Current occupational status: employed Current occupation: [employer] tech Cognitive needs: No Hearing needs: No Vision needs: No Review of Systems Const Reports fatigue Musc Reports back pain, Reports arthralgias, Reports joint swelling and Reports stiffness Endo Reports fatigue Physical Exam Vital Signs: Last Vital Signs Temp 98.3 F 05/25/23 14:02 Pulse 85 05/25/23 14:02 BP 112/72 05/25/23 14:02 Pulse Ox 93 05/25/23 14:02 BMI result Body Mass Index 34.9 Const General: cooperative, healthy appearing, comfortable and no acute distress Nutritional Appearance: obese Orientation/consciousness: patient oriented x3 Limitations: no limitations HEENT Head: Yes normocephalic and Yes atraumatic Mouth: Normal oral and palatal mucosa present and moist mucous membranes Resp Effort & Inspection: normal respiratory effort and able to speak in complete sentences Skin General skin exam: no rashes or lesions noted Neuro General: patient oriented x3 Extrem Other: Right knee tenderness at the medial joint line. No significant effusion No ankle tenderness or swelling Diffuse fibromyalgia tender points Assessment & Plan Assessment & Plan (1) Bilateral primary osteoarthritis of knee: Code(s): M17.0 - Bilateral primary osteoarthritis of knee Plan: This is a 57 female with bilateral knee osteoarthritis who presents for follow-up. Bilateral knee cortisone injections 06/2022 provided at least 6 months relief. Patient states that her knee pain is coming back but does not want to do another injection today. She takes Aleve daily. I suggested considering turmeric. Follow-up as needed (2) WILLIAMS positive: Code(s): R76.8 - Other specified abnormal immunological findings in serum Plan: Patient states that?juvenile arthritis at age 4.? She was being followed at the [facility] for many years.? It would usually affect her knees and ankles.? She stated that she had multiple knee arthrocentesis in the past.? She stated that she got multiple NSAIDs.? She does not remember whether she got corticosteroids or any DMARDs.? She was really relabeled later as lupus by another tree tapping laborer.? She has not been evaluated by a tree tapping laborer for more than 20 years. Upon evaluation I do not see any signs of autoimmune rheumatic disease. Comprehensive sub serology is negative. (3) Fibromyalgia: Code(s): M79.7 - Fibromyalgia Plan: Discussed management of fibromyalgia with patient. 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 I suggested that patient try to address her underlying psychiatric issues, anxiety/depression. She is in the process of getting referred to a psychotherapist and psychiatrist. Try to follow sleep hygiene practices. I suggested referral for a sleep study by her PCP to evaluate for underlying obstructive sleep apnea. Patient would benefit from increased physical activity, either through formal physical therapy or by joining a gym. Consider low-impact exercises such as walking, swimming, aqua therapy stretching, yoga. Patient was on gabapentin in the past that was initially beneficial then lost effectiveness. Discussed with PCP. Can consider another gabapentin trial or Lyrica (4) Chronic meniscal tear of knee: Code(s): M23.209 - Derangement of unspecified meniscus due to old tear or injury, unspecified knee Qualifiers: Meniscus of knee: medial Meniscus tear of knee type: other type Laterality: right Qualified Code(s): M23.203 - Derangement of unspecified medial meniscus due to old tear or injury, right knee Plan: Refer to Orthopedics Plan I spent 26 minutes reviewing patient's chart, evaluating patient, placing orders, counseling patient and documenting in the chart Orders: Referrals Orthopedics Referral M23.209 - Derangement of unspecified meniscus due to old tear or injury, unspecified knee Coding Level of Care Code Est Pt Level 4 (61024) Diagnoses Bilateral primary osteoarthritis of knee M17.0 WILLIAMS positive R76.8 Fibromyalgia M79.7 Other old tear of medial meniscus of right knee M23.203 Meniscus of knee: medial Meniscus tear of knee type: other type Laterality: right
== END 2023-05-25 15:28 | disposition home or self-care (01) ==
PROVIDERS: PCP Nurse Practitioner Family; Visit Provider Student in an Organized Health Care Education/Training Program
DX: M17.0 Bilateral primary osteoarthritis of knee (principal); R76.8 Other specified abnormal immunological findings in serum; M79.7 Fibromyalgia; M23.203 Derangement of unspecified medial meniscus due to old tear or injury, right knee
CPT/HCPCS: 99214

== ENCOUNTER 2023-06-01 13:51 | Outpatient (REF) | payer OTHER, SELFPAY ==
--- NOTE | ~2023-06-01 | US_ITS ---
EXAMINATION: MM DIAGNOSTIC DIGITAL BREAST TOMOSYNTHESIS, BILATERAL US BREAST LIMITED, LEFT MAMMOGRAPHY: CLINICAL INFORMATION: 57-year-old female complaining of left medial breast pain. Also due for routine bilateral screening. COMPARISON: Mammography: 03/25/2021, 02/07/2017, 06/03/2016, 09/11/2013 TECHNIQUE: Digital breast tomosynthesis is performed in both the craniocaudal and mediolateral oblique views along with computer-aided detection (CAD). Synthesized 2D images are generated from the tomosynthesis. FINDINGS: There are scattered areas of fibroglandular density (ACR BI-RADS breast composition Category b). There are no suspicious masses, suspicious grouped calcifications, or areas of architectural distortion in either breast. The parenchymal pattern is stable from prior exams. There are no mammographic abnormalities in the left breast to account for the complaint of medial breast pain. ULTRASOUND: CLINICAL INFORMATION: 57-year-old female complaining of medial left breast pain. COMPARISON: None relevant. TECHNIQUE: Targeted sonographic evaluation was performed using a high frequency linear transducer. Exam was targeted to the medial left breast in the region of breast pain, spanning the 7:00 to 10:00 axes. Selected archived documentation. FINDINGS: LEFT BREAST: There is a mixture of fatty and fibroglandular tissue. No suspicious mass is seen. There is no pathologic acoustic shadowing. No cystic abnormalities. There is no ultrasonographic correlate to the region of breast pain in the medial left breast. US/US breast LT limited mamm only IMPRESSION: There are no findings suspicious for malignancy in either breast. There is no imaging correlate on mammogram or sonography to explain medial breast pain. Recommend clinical management. Otherwise, recommend 1 year follow-up routine screening exam OVERALL ASSESSMENT: Mammography: BI-RADS 1 - Negative Ultrasound: BI-RADS 1 - Negative RECOMMENDATION: 1. Patient should be managed based on the clinical impression. 2. Otherwise, routine annual screening mammography. Results were provided to the patient at time of visit by the technologist. This patient's information was entered into a reminder system with a target due date for their next mammogram.
== END 2023-06-01 13:52 | disposition home or self-care (01) ==
LOC: HO.MAMMO 13:51
PROVIDERS: PCP Nurse Practitioner Family; Visit Provider Nurse Practitioner Family
DX: N64.4 Mastodynia (principal)
CPT/HCPCS: 76642; 77062; 77066

== ENCOUNTER → 2023-06-01 14:30 | Outpatient (BNV) | payer OTHER, SELFPAY | PROVIDERS: PCP Nurse Practitioner Family; Visit Provider Radiology Diagnostic Radiology | DX: R92.323 Mammographic fibroglandular density, bilateral breasts (principal); R92.312 Mammographic fatty tissue density, left breast | CPT/HCPCS: 76642; 77062; 77066 ==

== ENCOUNTER 2023-06-02 06:07 | Day surgery (SDC) | payer OTHER, SELFPAY ==
[2023-05-30 14:58] VITALS: BMI 35.3
--- NOTE | 2023-06-01 07:14 | MHC.SHP ---
Pre-Procedural Eval Section A Date of Service: 06/01/23 The patient is an INPATIENT: No Changes since office visit: No Cold of Flu in the past 2 weeks, No New Medical Problems, No Changes in Medication and No Patient answered all questions The History & Physical has been completed within 30 days and I have reviewed it.: Yes Section B Chief Complaint: Unspecified hemorrhoids Allergies: Allergies Allergy/AdvReac Type Severity Reaction Status Date / Time No Known Allergies Allergy Verified 05/25/23 14:11 Plan I have reviewed the history and physical and performed a pertinent physical examination on my patient. No changes have occurred unless specified. Time Spent With Patient Time: Total time managing care of this patient today ____ minutes.
[2023-06-02] MEDS: Lactated Ringers 1,000 ML 100 ML IVCONT (06:25)
[2023-06-02 06:34] VITALS: BP 125/80; PULSE 99; RESP 18; TEMP 36.6; O2SAT 96
--- NOTE | 2023-06-02 07:15 | P.CONAN_ITS ---
Documented by User: Mami Sky NP 06/01/23 08:59 HPI - Anesthesia Eval Consult details Narrative: 57yo F for Hemorrhoidectomy,mini ligature,lithotomy, PMFSH Active Problems Active Problems: All Active Problems (Updated 05/28/23 @ 17:26 by Deepak Temple, [facility]) URVASHI (obstructive sleep apnea) (Acute) Fibromyalgia (Acute) WILLIAMS positive (Acute) Breast pain, left (Acute) Major depression, recurrent (Acute) Physical exam (Acute) Bilateral primary osteoarthritis of knee (Acute) Chronic meniscal tear of knee (Acute) Hemorrhoids (Acute) Screening for colon cancer (Acute) Joint pain (Acute) B12 deficiency (Acute) Anxiety (Acute) Allergic conjunctivitis (Acute) Elevated TSH (Acute) Foot pain (Acute) GERD (gastroesophageal reflux disease) (Acute) Knee pain (Acute) Fatigue (Acute) Insomnia (Acute) Overactive bladder (Acute) Renal calculi (Acute) Insomnia (Acute) Plantar fasciitis (Acute) Interstitial cystitis (Acute) Overactive bladder (Acute) Hypothyroid (Acute) Screening for colon cancer (Acute) Past Medical History Medical History Osteoarthritis of left knee Osteoarthritis of right knee Overactive bladder Renal calculi Fibromyalgia Lupus Hyperthyroidism Stress bladder incontinence, female Cystitis Family History Family History Mother Mental health disorder Alzheimer disease Father Cancer Brother Prostate cancer Surgical History Surgical History Hx of colonoscopy Hx of hemorrhoidectomy History of surgery Social History Social History Housing: Other Housing Other:: living with friend Alcohol intake: current Alcohol intake frequency: does not drink Patient Tobacco Use Status: Current everyday Tobacco user Tobacco use type: Cigarette Cigarettes Per Day: 5 Years Smoked: 40 Smoked in Last 30 Days: Yes e-Cigarette/Vaping Use: Never Used Patient Interested in Nicotine Replacement: No Second Hand Smoke Exposure: No Are you DNR?: No Advance Directives: No Advance Directives Information Provided: Yes Nutrition Risks: No Nutritional Risk service: No Current occupational status: employed Current occupation: behavioral tech Cognitive needs: No Hearing needs: No Vision needs: No Meds Allergies Allergy/AdvReac Type Severity Reaction Status Date / Time No Known Allergies Allergy Verified 06/02/23 06:33 Home Medications Medication Instructions Recorded Confirmed Last Taken Type atorvastatin 20 mg tablet 20 mg PO DAILY 05/24/23 06/02/23 Unknown History Exam Exam Date and Time: June 01, 2023 0851 Height,Weight and Vital Signs: Height 5 ft 2 in Weight 87.543 kg Pertinent Lab Results Pertinent Lab Results: Laboratory Tests 05/25/23 10:06 WBC 5.3 Hgb 15.7 Hct 46.8 Plt Count 231 Sodium 140 Potassium 3.8 Chloride 108 Carbon Dioxide 20 L BUN 13 Creatinine 0.74 Narrative Narrative: EKG 03/2023 NSR @ 79 Assessment and Plan Assessment Anesthesia Assessment: Chart Reviewed Documented by User: Mindy Perez DO 06/02/23 07:20 HPI - Anesthesia Eval Consult details Narrative: 57yo F for Hemorrhoidectomy,mini ligature,lithotomy. Scheduled for sleep study in July. Smoker. [facility] Past Medical History Medical History Osteoarthritis of left knee Osteoarthritis of right knee Overactive bladder Renal calculi Fibromyalgia Lupus Hyperthyroidism Stress bladder incontinence, female Cystitis Family History Family History Mother Mental health disorder Alzheimer disease Father Cancer Brother Prostate cancer Family history of problems with anesthesia: No Surgical History Surgical History Hx of colonoscopy Hx of hemorrhoidectomy History of surgery History of Problems with Anesthesia: No Social History Social History Housing: Other Housing Other:: living with friend Alcohol intake: current Alcohol intake frequency: does not drink Patient Tobacco Use Status: Current everyday Tobacco user Tobacco use type: Cigarette Cigarettes Per Day: 5 Years Smoked: 40 Smoked in Last 30 Days: Yes e-Cigarette/Vaping Use: Never Used Patient Interested in Nicotine Replacement: No Second Hand Smoke Exposure: No Are you DNR?: No Advance Directives: No Advance Directives Information Provided: Yes Nutrition Risks: No Nutritional Risk service: No Current occupational status: employed Current occupation: [employer] Cognitive needs: No Hearing needs: No Vision needs: No Meds Allergies Allergy/AdvReac Type Severity Reaction Status Date / Time No Known Allergies Allergy Verified 06/02/23 06:33 Home Medications Medication Instructions Recorded Confirmed Last Taken Type atorvastatin 20 mg tablet 20 mg PO DAILY 05/24/23 06/02/23 Unknown History Exam Exam Date and Time: June 02, 2023 0715 Height,Weight and Vital Signs: Height 5 ft 2 in Weight 87.543 kg Vital Signs Temperature 97.9 F 06/02/23 06:34 Pulse Rate 99 06/02/23 06:34 Respiratory Rate 18 06/02/23 06:34 Blood Pressure 125/80 06/02/23 06:34 Pulse Oximetry 96 06/02/23 06:34 Oxygen Delivery Method Room Air 06/02/23 06:34 Temperature 97.9 F 06/02/23 06:34 Pulse Rate 99 06/02/23 06:34 Respiratory Rate 18 06/02/23 06:34 Blood Pressure 125/80 06/02/23 06:34 Pulse Oximetry 96 06/02/23 06:34 Oxygen Delivery Method Room Air 06/02/23 06:34 Airway Mallampati Class: I TM Dist: >3cm Neck ROM: Full Loose/Missing/Broken Teeth: No (patient denies) Heart: S1S2 Lungs: Slightly diminished on right but CTA left Assessment and Plan Assessment Anesthesia Assessment: Anesthesia Plan Discussed and Chart Reviewed Final Anesthetic Review Family History of Problems with Anesthesia: No History of Problems with Anesthesia: No NPO: Yes ASA Class: II Final Preanesthetic Review: No Changes in Pt Med Stat, Meds/Allgs Chart Reviewed, Consent Obtained/Reviewed and Anes Risks/Benef Reviewed Patient Risk: Low Procedure Risk: Low Anesthetic Plan Anesthetic Plan: MAC: and Agree w/ Assess. and Plan Disposition: Standard PACU
[2023-06-02 08:00] VITALS: BP 105/73; PULSE 83; RESP 14; TEMP 36.4; O2SAT 95
[2023-06-02 08:15] VITALS: BP 107/70; PULSE 78; RESP 16; O2SAT 96
[2023-06-02 08:30] VITALS: BP 127/83; PULSE 72; RESP 18; TEMP 36.4; O2SAT 98
--- NOTE | 2023-06-02 10:56 | W.PM.OPN ---
Operative Note Operative Note Date of Service: 06/02/23 Narrative: Preoperative diagnosis: [] large symptomatic hemorrhoids Postop diagnosis: [] same Procedure [] hemorrhoidectomy x2 Surgeon: [] Mj Specialist Employee Labor Relations: [] Type of Anesthesia: [] MAC Indication for surgery: [] patient presents with 2 very large external hemorrhoids at the 03:00 o'clock and 7 o'clock position lithotomy. Findings: [] Patient brought to the operating room, placed on operative table in supine position, after adequate level of MAC anesthesia was induced, patient placed in lithotomy position. Rectal exam was performed with no other obvious pathology aside from the hemorrhoids. Patient then had the perineum and anal area prepped and draped in usual sterile fashion. each hemorrhoidal area was infiltrated with 0.5% Marcaine / 1% lidocaine. Hemorrhoids were sequentially grasped, and double Firing of device ligature t to transect the 2 Very large hemorrhoids. Defects were then reapproximated using interrupted 2-0 chromic. Wounds were irrigated and secured hemostasis. A bupivacaine impregnated Gelfoam plug was then placed followed by sterile dressing. Sponge, needle, instrument counts reported correct. Patient tolerated the procedure well and emerged from anesthesia in stable condition. EBL minimal
== END 2023-06-02 09:12 | disposition home or self-care (01) ==
PROVIDERS: PCP Nurse Practitioner Family; Visit Provider Surgery
PROC: (CPT 46250; principal; 2023-06-02 07:30)
DX: K64.9 Unspecified hemorrhoids (principal); R15.1 Fecal smearing; M79.7 Fibromyalgia; M06.9 Rheumatoid arthritis, unspecified; M32.9 Systemic lupus erythematosus, unspecified; G47.33 Obstructive sleep apnea (adult) (pediatric); N39.3 Stress incontinence (female) (male); E05.90 Thyrotoxicosis, unspecified without thyrotoxic crisis or storm; Z79.899 Other long term (current) drug therapy; F17.210 Nicotine dependence, cigarettes, uncomplicated
CPT/HCPCS: 46250; 88304; J0690; J1885; J2250; J2795; J3010

== ENCOUNTER → 2023-06-02 06:07 | Outpatient (BNV) | payer OTHER, SELFPAY | PROVIDERS: PCP Nurse Practitioner Family; Visit Provider Surgery | DX: K64.8 Other hemorrhoids (principal) | CPT/HCPCS: 46250 ==

== ENCOUNTER 2023-06-12 09:14 | Outpatient (AMB) | payer OTHER, SELFPAY ==
--- NOTE | 2023-06-12 09:19 | A.OFFVIS_ITS ---
Intake Vital Signs 06/12/23 09:26 Weight 190 lb BP 117/68 Blood Pressure Location Lt brachial Position Sitting Pulse 84 Intake Visit Reasons: S/P hemorrhoidectomy Intake Note: Patient here s/p hemorrhoidectomy. C/o pain. Only taking motrim. No longer taking rx pain meds. Sample Wrapper Required: No Accompanied by: Self / Same As Patient Allergies No Known Allergies Allergy (Verified 06/12/23 09:27) HPI HPI Comments History of Present Illness Details Patient presents for follow-up. Status post hemorrhoidectomy. Aside from incisional discomfort which is slowly but steadily improving, she is doing okay okay. She has time diet. She is having soft regular bowel habits. No wound issues PFSH Medical History Osteoarthritis of left knee Osteoarthritis of right knee Overactive bladder Renal calculi Fibromyalgia Lupus Hyperthyroidism Stress bladder incontinence, female Cystitis Surgical History Hx of colonoscopy Hx of hemorrhoidectomy History of surgery Family History Mother Mental health disorder Alzheimer disease Father Cancer Brother Prostate cancer Social History Housing: Other Housing Other:: living with friend Alcohol intake: current Alcohol intake frequency: does not drink Patient Tobacco Use Status: Current everyday Tobacco user Tobacco use type: Cigarette Cigarettes Per Day: 5 Years Smoked: 40 e-Cigarette/Vaping Use: Never Used Second Hand Smoke Exposure: No service: No Current occupational status: employed Current occupation: [employer] Cognitive needs: No Hearing needs: No Vision needs: No Physical Exam Vital Signs: Last Vital Signs Pulse 84 06/12/23 09:26 BP 117/68 06/12/23 09:26 GI Other: Rectal exam demonstrates post hemorrhoidectomy wounds, all clean dry and intact. Assessment & Plan Assessment & Plan (1) Hemorrhoids: Code(s): K64.9 - Unspecified hemorrhoids Plan Patient has been given local instructions, and will follow-up p.r.n.. Will give her 2 week out of work note and then to resume work with 2 weeks light duty. Any issues or complaints, patient should contact the office or will otherwise follow up p.r.n.. Coding Level of Care Code Global (08704) Diagnoses Hemorrhoids K64.9
[2023-06-12 09:26] VITALS: BP 117/68; PULSE 84
== END 2023-06-12 10:00 | disposition home or self-care (01) ==
PROVIDERS: PCP Nurse Practitioner Family; Visit Provider Surgery
DX: K64.9 Unspecified hemorrhoids (principal)
CPT/HCPCS: 99024

== ENCOUNTER → 2023-06-12 09:14 | Outpatient (BNVA) | payer OTHER, SELFPAY | PROVIDERS: PCP Nurse Practitioner Family; Visit Provider Surgery ==

== ENCOUNTER 2023-06-13 17:19 | Outpatient (REF) | payer OTHER, SELFPAY | END 2023-06-13 17:20 | disposition home or self-care (01) | LOC: HO.HOSX 17:19 | PROVIDERS: Visit Provider Orthopaedic Surgery | DX: Z13.89 Encounter for screening for other disorder (principal) ==

== ENCOUNTER 2023-06-19 07:51 | Outpatient (AMB) | payer OTHER, SELFPAY ==
--- NOTE | 2023-06-19 07:54 | MHC.PC.OV ---
Vital Signs 06/19/23 07:57 Height 5 ft 2 in Weight 191 lb BMI 34.9 BP 110/70 Blood Pressure Location Rt brachial Position Sitting Pulse 84 Pulse Source Pulse Oximeter Pulse Oximetry (%) 97 Oxygen Delivery Method Room Air Intake Visit Reasons: PHY/follow up on anxiety Allergies No Known Allergies Allergy (Verified 06/19/23 07:58) Medication List - Last Reconciled 06/19/23 by DUYEN Salazar atorvastatin 20 mg PO DAILY levothyroxine 150 mcg PO DAILY 90 days mecobalamin (vitamin B12) 1,000 mcg PO DAILY 90 days methocarbamol 500 mg PO BEDTIME PRN 30 days sertraline 100 mg PO DAILY 90 days Tobacco use date assessed: 05/24/23 Dental Screening Dental Screen Date: 06/19/23 Did you have a dental visit in the last 12 months?: No Did you have a dental problem in the last 6 months where you did not have access to dental care?: No Was dental information given to patient?: No HPI PHY/follow up on anxiety HPI Details Pt is here for a PE. Labs were already performed. Mammo is up to date. recent hemorrhoidectomy, pt is awaiting call from GI for colon screen, initial consult done. Ongoing anxiety and depression, on sertraline, awaiting therapist (saw here last visit). Pt is teary eyed today and is stressed due to not being able to work and pay bills. Will have team speak with pt again. Denies any SI and HI. Will increase sertraline from 50mg to 100mg. Financial hardship noted, and expressed to psych provider. [facility] Medical History Osteoarthritis of left knee Osteoarthritis of right knee Overactive bladder Renal calculi Fibromyalgia Lupus Hyperthyroidism Stress bladder incontinence, female Cystitis Surgical History Hx of colonoscopy Hx of hemorrhoidectomy History of surgery Family History Mother Mental health disorder Alzheimer disease Father Cancer Brother Prostate cancer Social History Housing: Other Housing Other:: living with friend Alcohol intake: current Alcohol intake frequency: does not drink Patient Tobacco Use Status: Current everyday Tobacco user Tobacco use type: Cigarette Cigarettes Per Day: 5 Years Smoked: 40 e-Cigarette/Vaping Use: Never Used Second Hand Smoke Exposure: No service: No Current occupational status: employed Current occupation: [employer] Cognitive needs: No Hearing needs: No Vision needs: No Questionnaire Thrive Questionnaire Date Thrive assessed: 05/06/21 AUDIT C Alcohol Use Questionnaire (AUDIT-C) 1. How often do you have a drink containing alcohol?: Never 3. How often do you have six or more drinks on one occasion?: Never Total Score: 0 Score Reviewed/Action Taken: No Review of Systems Const Denies chills and Denies fever(s) Eyes Denies blurry vision ENT Denies vertigo, Denies dizziness and Denies sore throat Card Denies chest pain at rest, Denies chest pain with activity, Denies diaphoresis, Denies dyspnea and Denies dyspnea on exertion Resp Denies cough, Denies dyspnea, Denies dyspnea on exertion and Denies wheezing GI Denies abdominal pain, Denies melena, Denies hematochezia, Denies constipation, Denies diarrhea and Denies loose stools Denies hematuria Musc Denies numbness and Denies tingling Skin/Breast Denies lesions Neuro Denies vertigo, Denies dizziness, Denies numbness and Denies tingling Psych Denies anxiety, Denies depression, Denies homicidal ideation, Denies suicidal ideation and Denies other (substance abuse) Aller/Immun Denies wheezing Physical exam (Primary Care) Vital Signs: Last Vital Signs Pulse 84 06/19/23 07:57 BP 110/70 06/19/23 07:57 Pulse Ox 97 06/19/23 07:57 Oxygen Delivery Method Room Air 06/19/23 07:57 BMI result Body Mass Index 34.9 Tobacco/Smoking Status: Tobacco use Status Tobacco use date assessed 05/24/23 06/19/23 07:56 Patient Tobacco Use Status Current everyday Tobacco 06/19/23 07:56 Tobacco use type Cigarette 06/19/23 07:56 e-Cigarette/Vaping Use Never Used 06/19/23 07:56 Thrive Assessment: Date of Thrive Assessment Date Thrive assessed 05/06/21 06/19/23 07:56 Const General: cooperative Nutritional Appearance: obese Orientation/consciousness: patient oriented x3 HENMT Head: Yes normal to inspection, Yes normocephalic and Yes atraumatic Ears: TM's normal bilaterally Eyes General: appearance normal, both eyes and all related structures Alignment and Position: alignment normal and position normal Neck Neck: Yes normal visual inspection and Yes no lymphadenopathy Thyroid: Thyroid normal Resp Effort & Inspection: normal respiratory effort Auscultation: clear to auscultation bilaterally Cardio Rate: regular rate Rhythm: regular rhythm Heart sounds: S1 normal heart sound present, S2 normal heart sound present and no murmurs GI Palpation (GI): Soft to palpation and nontender Auscultation: normal bowel sounds Skin Rashes: no rashes Neuro General: patient oriented x3, moves all extremities, no focal motor deficits and deep tendon reflexes 2+ bilaterally Romberg Test: Negative Psych Other: teary eyed Appearance: grossly normal Mental Status: mental status grossly normal Speech and movement: Normal speech and movement present Attitude: cooperative Thought process: Normal thought process present Thought content: Normal thought content present Insight: Good insight present (Psych) Judgement: Good judgement present (Psych) Assessment and Plan Assessment & Plan (1) Major depression, recurrent: Code(s): F33.9 - Major depressive disorder, recurrent, unspecified (2) Anxiety: Code(s): F41.9 - Anxiety disorder, unspecified Plan The patient agreed to the use of a certified medical coder for this encounter. Scribed for DUYEN Ivey by Clare Early certified medical coder, on 06/19/2023 at 08:05 EST. Medications: Changed From sertraline 50 mg PO DAILY 90 tabs 0RF To sertraline 100 mg PO DAILY 90 days 90 tabs 2RF Coding Level of Care Code Est Pt Prev Care 40-64y(86319) Diagnoses Major depression, recurrent F33.9 Anxiety F41.9
[2023-06-19 07:57] VITALS: BP 110/70; PULSE 84; O2SAT 97; BMI 34.9
== END 2023-06-19 09:46 | disposition home or self-care (01) ==
PROVIDERS: PCP Nurse Practitioner Family; Visit Provider Nurse Practitioner Family
DX: Z00.01 Encounter for general adult medical examination with abnormal findings (principal); F33.9 Major depressive disorder, recurrent, unspecified; F41.9 Anxiety disorder, unspecified
CPT/HCPCS: 99213; 99396